=== PATIENT | male | born 1945 | race Caucasian/White ===

== ENCOUNTER → 2018-03-30 12:10 | Outpatient (CLI) | payer MEDICARE, OTHER ==
[2018-03-30 13:26] LABS: ANION GAP 18.7 mmol/L (8-16); CARBON DIOXIDE 25.4 mmol/L (21.0-32.0); CREATININE - SERUM 1.7 mg/dL (0.6-1.3); POTASSIUM - SERUM 4.1 mmol/L (3.5-5.1)
== END | disposition home or self-care (01) ==
LOC: D.LAB 12:10
PROVIDERS: Internal Medicine Gastroenterology
DX: R19.5 Other fecal abnormalities (principal)

== ENCOUNTER → 2019-11-15 13:31 | Outpatient (CLI) | payer MEDICARE, OTHER | END | disposition home or self-care (01) | LOC: D.US 13:31 | PROVIDERS: ATTEND Internal Medicine Nephrology | DX: N18.3 Chronic kidney disease, stage 3 (moderate) (principal) ==